=== PATIENT | female | born 1940 | race Caucasian/White ===

== ENCOUNTER 2019-11-20 13:12 | Emergency (ER) | payer BC, OTHER ==
[2019-11-20 13:37] VITALS: BP 147/87; PULSE 95; TEMP 98.5; BMI 32.4
[2019-11-20] MEDS ORDERED: DIPHTH,PERTUSS(ACELL),TET 0.5 ML DISP.SYRIN IM ONE ×2 (13:53→13:56)
--- NOTE | 2019-11-20 13:53 | PDOC ---
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 There was bleeding. There is no pain or distal numbness tingling pain or weakness. Review of systems: As noted above. Otherwise reviewed and noncontributory Past medical history: Mood disorder on Lexapro, lipidemia on Vytorin, hypothyroidism, high blood pressure controlled on losartan metoprolol and hydrochlorothiazide/triamterene Social/family history reviewed and noncontributory Physical exam: Alert no acute distress cheerful and cooperative Left lower le cm superficial laceration of the lateral distal calf. Pulses full. No distal sensory or motor deficits. No bleeding. Impression: Superficial laceration of the lower leg Plan: Repair, tetanus booster, and follow-up as needed. Past History - Past Medical History Allergies/Adverse Reactions: Allergies Allergy/AdvReac Type Severity Reaction Status Date / Time No Known Allergies Allergy Unverified 11/20/19 13:15 Home Medications: Ambulatory Orders Aspirin 81 mg PO DAILY 11/20/19 Escitalopram Oxalate [Lexapro -] 10 mg PO DAILY 11/20/19 Ezetimibe/Simvastatin [Vytorin 10-40 mg Tablet] 1 tab PO DAILY 11/20/19 Letrozole 2.5 mg PO DAILY 11/20/19 Levothyroxine [Synthroid -] 125 mcg PO DAILY 11/20/19 Losartan Potassium 50 mg PO DAILY 11/20/19 Metoprolol Succinate 25 mg PO DAILY 11/20/19 Triamterene/Hydrochlorothiazid [Triamterene-Hctz 37.5-25 mg Cp] 1 cap PO DAILY 11/20/19 Cancer: Yes (breast) COPD: No HTN: Yes Hypercholesterolemia: Yes Thyroid Disease: Yes Other medical history: aortic stenosis - Surgical History Cholecystectomy: Yes - Psycho Social/Smoking Cessation Hx Smoking History: Never smoked Information on smoking cessation initiated: No Hx Alcohol Use: Yes (social) Drug/Substance Use Hx: No *Physical Exam - Vital Signs Last Vital Signs Temp Pulse Resp BP Pulse Ox 98.5 F 95 H 16 147/87 96 11/20/19 13:14 11/20/19 13:14 11/20/19 13:14 11/20/19 13:14 11/20/19 13:14 Medical Decision Making - Medical Decision Making 11/20/19 14:31 Procedure note: Repair of laceration Local anesthesia with 1% lidocaine plain Scrubbed and irrigated with normal saline, explored. Superficial, consisting of epidermis and subcutaneous tissue only. No deep punctures or deep structures exposed Wound edges approximated with 5-0 nylon interrupted sutures x3. Bacitracin and 4 x 4 and Marco Antonio as dressing. Wound care instructions. Follow-up if signs of infection, otherwise sutures out in 7 to 10 days. Fully ambulatory in no pain or other distress, with no bleeding, at discharge to follow-up as directed Discharge - Discharge Information Problems reviewed: Yes Clinical Impression/Diagnosis: Laceration of left leg Qualifiers: Encounter type: initial encounter Qualified Code(s): S81.812A - Laceration without foreign body, left lower leg, initial encounter Condition: Improved Disposition: HOME - Admission No - Follow up/Referral - Patient Discharge Instructions Patient Printed Discharge Instructions: DI for Laceration Repair Additional Instructions: Rest and elevate the leg 24 to 48 hours. Change the dressing in 2 days. If sign of infection, return immediately for wound check. Otherwise continue to change dressing, applying antibiotic ointment, and return for suture removal in 7 to 10 days. - Post Discharge Activity
== END 2019-11-20 14:17 | disposition home or self-care (01) ==
LOC: FER 13:12
PROC: 3E0234Z Introduction of Serum, Toxoid and Vaccine into Muscle, Percutaneous Approach (ICD-10-PCS; principal; 2019-11-20)
PROC: 0HQLXZZ Repair Left Lower Leg Skin, External Approach (ICD-10-PCS; principal; 2019-11-20)
DX: S81.812A Laceration without foreign body, left lower leg, initial encounter (principal); W22.8XXA Striking against or struck by other objects, initial encounter
CPT/HCPCS: 12001-25; 90471; 90715; 99282-25